=== PATIENT | female | born 1985 | race African-American/Black ===

== ENCOUNTER → 2016-11-10 | Day surgery (SDC) | payer OTHER ==
[~2016-11-10] VITALS: Ht 167.6 cm; Wt 131.8 kg
[~2016-11-10] MED LIST: COLACE100 MG PO; MOTRIN600 MG PO; PRENATAL TABLE1 EAC1 PO
[2016-11-10 08:52] LABS: HCT 39.9 % (37.0-47.0); HGB 13.1 g/dl (12.5-16.0); MCH 28.2 pg (25.0-31.0); MCHC 32.8 g/dL (32.0-36.0); MPV 9.5 fL (6.0-9.5); RBC 4.64 M/uL (4.20-5.40); RDW 14.5 % (11.5-14.0); WBC 7.2 K/uL (4.0-10.5)
[2016-11-10 09:04] LABS: ALBUMIN 3.5 g/dL (3.5-5.0); BILIRUBIN - TOTAL 0.2 mg/dL (0.1-1.0); GLOBULIN (CALCULATION) 3.5 g/dL (2.2-4.2)
[2016-11-10 09:05] LABS: POTASSIUM 5.9 mmol/L (3.5-5.1)
== END | disposition home or self-care (01) ==
LOC: FAS 08:16
PROVIDERS: Surgery
DX: K80.10 Calculus of gallbladder with chronic cholecystitis without obstruction (principal); G43.909 Migraine, unspecified, not intractable, without status migrainosus; K21.9 Gastro-esophageal reflux disease without esophagitis; F17.210 Nicotine dependence, cigarettes, uncomplicated; I10 Essential (primary) hypertension; E66.01 Morbid (severe) obesity due to excess calories; Z98.890 Other specified postprocedural states; Z79.899 Other long term (current) drug therapy; Z88.8 Allergy status to other drugs, medicaments and biological substances
CPT/HCPCS: 36415; 80053; 84703; 88304; J0690; J1100; J1170; J2405; J2704; J3010; Q9962

== ENCOUNTER 2021-10-28 16:29 | Emergency (ER) | payer OTHER ==
[~2021-10-28 16:29] MED LIST changes: +ACID CONTROLLER20 MG PO; +ANTIVERT25 MG PO; +COLESTID 1GM TAB1 GM PO; +FEOSOL325 MG PO; +HCTZ25 MG PO; +IMODIUM2 MG PO; +K-DUR20 MEQ PO; +LEVSIN-SL0.125 MG SL; +NAPROXEN500 MG PO; +OMEPRAZOLE40 MG PO; +PROZAC20 MG PO; +RIZATRIPTAN10 MG PO; +SEROQUEL 25MG T25 MG PO; +TESSALON PERLE100 MG PO; +TUMS200 MG PO; +VICODIN 10/3251 EACH PO; +XULANE PATCH1 EACH TOP; +ZOLOFT100 M1 PO
[2021-10-28 17:34] LABS: INFLUENZA A NAA NEGATIVE (NEGATIVE)
[2021-10-28 18:23] LABS: CORONAVIRUS 2019 SARS-COV-2 POSITIVE (NEGATIVE)
[2021-10-28 19:30] LABS: BILIRUBIN NEGATIVE (NEGATIVE); BLOOD NEGATIVE Ery/uL (NEGATIVE); CLARITY CLEAR (CLEAR); COLOR YELLOW (YELLOW); GLUCOSE (U) NORMAL (NORMAL); LEUKOCYTES NEGATIVE Leu/uL (NEGATIVE); NITRITE NEGATIVE (NEGATIVE); PROTEIN NEGATIVE (NEGATIVE); SPECIFIC GRAVITY 1.025 (1.001-1.030); UROBILINOGEN 0.2 mg/dL (0.2-1.0)
[2021-10-28] MEDS ORDERED: ONDANSETRON HCL4 MG PO (19:35)
[2021-10-28] MEDS ORDERED: BACLOFEN 10MG T10 MG PO (19:35)
== END 2021-10-28 19:40 | disposition home or self-care (01) ==
LOC: FER 16:29
PROVIDERS: Nurse Practitioner Family
DX: U07.1 COVID-19 (principal); F17.210 Nicotine dependence, cigarettes, uncomplicated; Z88.8 Allergy status to other drugs, medicaments and biological substances
CPT/HCPCS: 81003; 96372; 99283; J1100; J1885; U0002